=== PATIENT | female | born 1935 | race African-American/Black ===

== ENCOUNTER → 2016-12-02 | Outpatient (CLI) | payer MEDICARE, MEDICAID | LOC: WI 08:51 | PROVIDERS: ATTEND Family Medicine | DX: Z12.31 Encounter for screening mammogram for malignant neoplasm of breast (principal) | CPT/HCPCS: 77063; G0202; 77067 ==

== ENCOUNTER → 2017-04-23 | Outpatient (CLI) | payer MEDICARE ==
--- NOTE | 2017-04-23 10:34 | WOMENS IMAGING REPORT ---
EXAM DESCRIPTION: BONE DENSITY HIP/SPINE COMPLETED DATE/TIME: 04/23/2017 10:14 am REASON FOR STUDY: AGE-RELATED OSTEOPROSIS; M81.0 M81.0 AGE-RELATED OSTEOPOROSIS W/O CURRENT PATHOLO GICAL FRAC COMPARISON: None. TECHNIQUE: Dual-Energy X-ray Absorptiometry (DEXA) of the AP Spine and Hip. LIMITATIONS: None. FINDINGS: LUMBAR SPINE: The bone mineral density (BMD) measured from L1-L4 in the AP projection correlates with a T-score of -1.2, which is osteopenia as defined by the World Health Organization. HIP: The bone mineral density (BMD) measured in the left hip correlates with a T-score of -1.6 in the femo ral neck, which is osteopenia as defined by the World Health Organization. IMPRESSION: 1. LUMBAR SPINE: Osteopenia 2. HIP: Osteopenia COMMENT: The World Health Organization defines low BMD as follows: T-score: Normal: Greater than -1.0 Osteopenia: Between -1.0 and -2.5 Osteoporosis: Less than -2.5 without fractures Established osteoporosis: Less than -2.5 with fractures In general, you may wish to consider: Diagnosis Treatment Follow-up DEXA Normal BMD Prevention 2-3 years Osteopenia Prevention/Therapy 1-2 years Osteoporosis Therapy Yearly TECHNICAL DOCUMENTATION: JOB ID: [id number]- All Rights Reserved
--- NOTE | 2017-04-23 16:13 | WOMENS IMAGING REPORT ---
EXAM DESCRIPTION: 3D SCREENING MAMMO BILAT COMPLETED DATE/TIME: 04/23/2017 10:13 am REASON FOR STUDY: ROUTINE SCREENING; Z12.31 M81.0 AGE-RELATED OSTEOPOROSIS W/O CURRENT PATHOLOGICAL FRAC COMPARISON: Multiple since 2012 TECHNIQUE: Standard craniocaudal and mediolateral oblique views of each breast recorded using digita l acquisition and breast tomosynthesis. LIMITATIONS: None. FINDINGS: Findings present which are benign by mammographic criteria. No suspicious masses, calcifi cations or architectural distortion. Pertinent benign findings: Benign skin calcifications bilaterally Read with the assistance of CAD. .[facility] - R2 Cenova Version 1.3 .[facility] - R2 Cenova Version 1.3 .[facility] Imaging - R2 Cenova Version 2.4 .[facility] - R2 Cenova Version 2.4 .[facility] - R2 Electric [employer] Version 9.2 Benign mammographic findings may include one or more of the following: Smooth masses, popcorn/rim/co arse calcifications, asymmetries, post-procedure changes, and lesions with long-standing stability. IMPRESSION: BENIGN MAMMOGRAPHIC FINDINGS. BIRADS 2 BREAST DENSITY: a. The breasts are almost entirely fatty. BIRAD: 2 BENIGN FINDING(S) RECOMMENDATION: RECOMMENDATION: ROUTINE SCREENING Please continue yearly bilateral screening tomosynthesis in March 2018 COMMENT: The patient has been notified of the results by letter per SA requirements. Additional no tification policies are in place for contacting patient with suspicious or incomplete findings. Quality ID #[id number]: The [employer] recommends an annual screening mammogram for women aged 40 years or over. This facility utilizes a reminder system to ensure that all patients receive reminder letters, and/or direct phone calls for appointments. This includes reminders for routine scr eening mammograms, diagnostic mammograms, or other Breast Imaging Interventions when appropriate. Th is patient will be placed in the appropriate reminder system. The [employer] (ACR) has developed recommendations for screening MRI of the breast s in certain patient populations, to be used in conjunction with mammography. Breast MRI surveillanc e may be appropriate for women with more than 20% lifetime risk of developing breast cancer as deter mined by genetic testing, significant family history of the disease, or history of mantle radiation f or Hodgkins Disease. ACR Practice Guidelines 2008. DBT Technology DBT is a type of tomographic mammography. With conventional mammography, overlapping breast tissue ma y make lesions difficult to detect, even with good compression. DBT uses an x-ray tube that rotates a round the breast, taking images at different angles. These images are then combined to create thin sl ices of the breast that the radiologist can view as a 3D reconstruction. The [employer] unit can perform full-field digital mammograms (2D imaging); or DBT (3D imaging); or both, in a combination mode that quickly performs both the mammogram and the tomosynthesis scan while the breast is still compressed. PQRS 6045F: Fluoroscopic imaging is not utilized for breast tomosynthesis. TECHNICAL DOCUMENTATION: FINDING NUMBER: (1) ASSESSMENT: (1) JOB ID: [id number] [employer]- All Rights Reserved
== END ==
LOC: WI 09:12
PROVIDERS: ATTEND Family Medicine
DX: Z12.31 Encounter for screening mammogram for malignant neoplasm of breast (principal); M81.0 Age-related osteoporosis without current pathological fracture
CPT/HCPCS: 77063; 77080; G0202; 77067

== ENCOUNTER → 2017-12-08 | Outpatient (CLI) | payer MEDICARE, MEDICAID ==
[2017-12-08 10:05] LABS: ABSOLUTE EOSINOPHILS # (AUTO) 0.1 10^3/uL (0.0-0.6); ABSOLUTE LYMPHOCYTES (AUTO) 1.6 10^3/uL (0.5-4.7); ABSOLUTE MONOCYTES (AUTO) 0.7 10^3/uL (0.1-1.4); ABSOLUTE NEUT (AUTO) 2.6 10^3/uL (1.7-8.2); BASOPHILS % (AUTO) 0.6 % (0-2); EOSINOPHILS % (AUTO) 2.5 % (0-6); HEMATOCRIT 38.4 % (36.0-47.0); LYMPHOCYTES % (AUTO) 31.1 % (13-45); MEAN CORPUSCULAR HGB CONC 33.9 g/dL (32.0-36.0); MEAN CORPUSCULAR VOLUME 95 fl (80-97); MONOCYTES % (AUTO) 13.9 % (3-13); PLATELET COUNT 212 10^3/uL (150-450); RED BLOOD COUNT 4.06 10^6/uL (3.72-5.28); RED CELL DISTRIBUTION WIDTH 13.5 % (11.5-14.0); SEGMENTED NEUTROPHILS % (AUTO) 51.9 % (42-78); TOTAL CELLS COUNTED % (AUTO) 100 %
[2017-12-08 10:32] LABS: ALANINE AMINOTRANSFERASE 27 U/L (9-52); ALBUMIN 4.1 g/dL (3.5-5.0); ALKALINE PHOSPHATASE 86 U/L (38-126); ANION GAP 9 (5-19); ASPARTATE AMINO TRANSFERASE 28 U/L (14-36); BILIRUBIN,DIRECT 0.4 mg/dL (0.0-0.4); BILIRUBIN,TOTAL 0.5 mg/dL (0.2-1.3); BLOOD UREA NITROGEN 14 mg/dL (7-20); CALCIUM 9.8 mg/dL (8.4-10.2); CARBON DIOXIDE 30 mmol/L (22-30); CHLORIDE 92 mmol/L (98-107); GLUCOSE 89 mg/dL (75-110); SODIUM 130.6 mmol/L (137-145); TOTAL PROTEIN 7.3 g/dL (6.3-8.2)
[2017-12-08 10:44] LABS: ERYTHROCYTE SEDIMENTATION RATE 34 mm/hr (0-30)
== END ==
LOC: LAB 09:43
PROVIDERS: ATTEND Orthopaedic Surgery
DX: M25.561 Pain in right knee (principal); M25.562 Pain in left knee
CPT/HCPCS: 36415; 80053; 85025; 85652; 86140

== ENCOUNTER → 2017-12-09 | Outpatient (CLI) | payer MEDICARE, MEDICAID ==
--- NOTE | 2017-12-09 15:30 | RADIOLOGY REPORT (SQ) ---
EXAM DESCRIPTION: NM 3 PHASE BONE SCAN COMPLETED DATE/TIME: 12/09/2017 2:05 pm REASON FOR STUDY: PAIN IN L/R KNEE M25.561 PAIN IN RIGHT KNEE M25.562 PAIN IN LEFT KNEE COMPARISON: Plain films from Dr. Palacios, 12/03/2017 RADIONUCLIDE AND DOSE: 22 millicuries Tc99m MDP. The route of agent administration: Intravenous. ADDITIONAL DRUGS AND DOSES: None. TECHNIQUE: Following injection of the radiopharmaceutical, serial blood flow images acquired. Equil ibrium blood pool images then acquired. Routine delayed images at 3 hour acquired of the areas of cl inical concern with additional focused images as needed. AREA OF INTEREST: Bilateral knees, bilateral hips LIMITATIONS: None. FINDINGS: Blood flow images show symmetric flow to the bilateral knees. Blood pool imaging demonstrates all no definite increased uptake on the right side with the knee repl acement. Delayed images demonstrate a bare area over the proximal tibial metaphysis from hardware. There is i ncreased uptake along the medial edge of the tibia adjacent to the hardware. This might indicate loo sening or microfracture. There is increased uptake along the left knee patella and medial compartment related to osteoarthriti s Delayed images of the lower lumbar spine and pelvis demonstrate increased uptake right L5-S1 facet. Mild increased uptake at the right hip joint likely related to osteoarthritis IMPRESSION: Right total knee replacement. Increased uptake on delayed images only, medial tibial pl ateau adjacent to the prosthesis. 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 TECHNICAL DOCUMENTATION: JOB ID: [id number] [employer]- All Rights Reserved Reading location - IP/workstation name: [facility]
== END ==
LOC: RAD 08:06
PROVIDERS: ATTEND Orthopaedic Surgery
DX: M25.561 Pain in right knee (principal); M25.562 Pain in left knee
CPT/HCPCS: 78315; A9561; Q9969

== ENCOUNTER → 2018-02-11 | Outpatient (CLI) | payer MEDICARE, MEDICAID ==
[2018-02-11 13:38] LABS: ABSOLUTE EOSINOPHILS # (AUTO) 0.1 10^3/uL (0.0-0.6); ABSOLUTE LYMPHOCYTES (AUTO) 1.1 10^3/uL (0.5-4.7); ABSOLUTE MONOCYTES (AUTO) 0.3 10^3/uL (0.1-1.4); ABSOLUTE NEUT (AUTO) 3.8 10^3/uL (1.7-8.2); BASOPHILS % (AUTO) 0.6 % (0-2); EOSINOPHILS % (AUTO) 1.1 % (0-6); HEMATOCRIT 38.2 % (36.0-47.0); LYMPHOCYTES % (AUTO) 20.2 % (13-45); MEAN CORPUSCULAR HEMOGLOBIN 32.4 pg (27.0-33.4); MEAN CORPUSCULAR VOLUME 95 fl (80-97); MONOCYTES % (AUTO) 5.9 % (3-13); PLATELET COUNT 205 10^3/uL (150-450); RED CELL DISTRIBUTION WIDTH 14.1 % (11.5-14.0); SEGMENTED NEUTROPHILS % (AUTO) 72.2 % (42-78); TOTAL CELLS COUNTED % (AUTO) 100 %; WHITE BLOOD COUNT 5.3 10^3/uL (4.0-10.5)
[2018-02-11 13:43] LABS: APPEARANCE,URINE CLEAR; BILIRUBIN,URINE NEGATIVE (NEGATIVE); COLOR,URINE YELLOW; GLUCOSE, URINE NEGATIVE (NEGATIVE); KETONES,URINE NEGATIVE (NEGATIVE); LEUKOCYTE ESTERASE,URINE TRACE (NEGATIVE); NITRITE,URINE NEGATIVE (NEGATIVE); PROTEIN,URINE NEGATIVE (NEGATIVE); URINE SPECIFIC GRAVITY 1.008; UROBILINOGEN,URINE NEGATIVE mg/dL (<2.0)
[2018-02-11 14:13] LABS: ANION GAP 10 (5-19); BLOOD UREA NITROGEN 16 mg/dL (7-20); C-REACTIVE PROTEIN 10.5 mg/L (<10.0); CALCIUM 9.8 mg/dL (8.4-10.2); CARBON DIOXIDE 28 mmol/L (22-30); CHLORIDE 97 mmol/L (98-107); GLUCOSE 93 mg/dL (75-110); POTASSIUM 4.3 mmol/L (3.6-5.0); SODIUM 134.6 mmol/L (137-145)
[2018-02-11 14:36] LABS: ERYTHROCYTE SEDIMENTATION RATE 36 mm/hr (0-30)
--- NOTE | 2018-02-11 14:59 | RADIOLOGY REPORT (SQ) ---
EXAM DESCRIPTION: CHEST PA/LATERAL COMPLETED DATE/TIME: 02/11/2018 1:17 pm REASON FOR STUDY: PRE-OP COMPARISON: June 2007 EXAM PARAMETERS: NUMBER OF VIEWS: two views TECHNIQUE: Digital Frontal and Lateral radiographic views of the chest acquired. RADIATION DOSE: NA LIMITATIONS: none FINDINGS: LUNGS AND PLEURA: No opacities, masses or pneumothorax. No pleural effusion. MEDIASTINUM AND HILAR STRUCTURES: No masses or contour abnormalities. HEART AND VASCULAR STRUCTURES: Cardiac silhouette is at the upper limits of normal in size. Tortuous thoracic aorta is again identified. BONES: No acute findings. HARDWARE: None in the chest. OTHER: No other significant finding. IMPRESSION: NO SIGNIFICANT RADIOGRAPHIC FINDING IN THE CHEST. TECHNICAL DOCUMENTATION: JOB ID: [id number] [employer]- All Rights Reserved Reading location - IP/workstation name: [email or web address]
--- NOTE | 2018-02-11 22:54 | EKG REPORT ---
SEVERITY:- BORDERLINE ECG - SINUS RHYTHM VENTRICULAR PREMATURE COMPLEX BORDERLINE T ABNORMALITIES, INFERIOR LEADS : Confirmed by: Antonina Reed 11-Feb-2018 22:53:28
== END ==
LOC: OD 12:22
PROVIDERS: ATTEND Orthopaedic Surgery
DX: Z01.818 Encounter for other preprocedural examination (principal); I11.0 Hypertensive heart disease with heart failure
CPT/HCPCS: 36415; 71046; 80048; 81001; 85025; 85652; 86140; 93005; 93010

== ENCOUNTER 2018-02-16 23:23 | Emergency (ER) | payer MEDICARE, MEDICAID ==
[2018-02-17] MEDS ORDERED: DIPH/PERTUSS(ACELL)/TETANUS VAC/PF 0.5 ML SYR (>=10YO) IM ONE (01:49)
[2018-02-17] MEDS ORDERED: LIDOCAINE 1% INJ-PF (10 MG/ML) 30 ML SDV INJ ONE (01:54)
--- NOTE | 2018-02-17 02:19 | RADIOLOGY REPORT (SQ) ---
EXAM DESCRIPTION: XR SHOULDER 2 OR MORE VIEWS COMPLETED DATE/TME: 02/16/2018 00:00 CLINICAL HISTORY: 82 years, Female, injury COMPARISON: None. FINDINGS: 2 views of the right shoulder. No acute fracture or dislocation. Osteopenia. Degenerative change. Right acromioclavicular joint. No acute abnormalities of the right hemithorax. IMPRESSION: No acute fracture or dislocation. 2010 [email or web address]- All Rights Reserved
--- NOTE | 2018-02-17 02:41 | RADIOLOGY REPORT (SQ) ---
EXAM DESCRIPTION: XR KNEE 1-2 VIEWS BILATERAL COMPLETED DATE/TME: 02/17/2018 01:54 CLINICAL HISTORY: 82 years, Female, trauma COMPARISON: None. FINDINGS: 2 views of the bilateral knees. Right total knee arthroplasty. Osteopenia. 3 compartment joint space narrowing and marginal osteophytosis of the left knee. No acute fracture or dislocation. No radiopaque foreign bodies. Possible small left joint effusion. IMPRESSION: 1. No acute fracture or dislocation. 2. Right total knee arthroplasty. 3. 3 compartment osteoarthritic change of the left knee. 2011 [email or web address]- All Rights Reserved
[2018-02-17] MEDS ORDERED: ACETAMINOPHEN 325 MG TABLET PO ONE (03:29)
--- NOTE | 2018-02-17 03:29 | ER Document Report ---
ED General - General Chief Complaint: Laceration Stated Complaint: FALL,KNEE LACERATION Time Seen by Provider: 02/17/18 01:45 Notes: Patient is an 82-year-old female who is trying to squeeze between her dresser in her bed. She said doing so she cut her left knee on the dresser drawer knob and then fell onto her right side. She complains of some pain in her right knee and her right shoulder as well as over the laceration her left knee. She denies hitting her head. No loss of consciousness. No other complaints at this time. No pain in her hips. No pain in her abdomen or pelvis. TRAVEL OUTSIDE OF THE [place] IN LAST 30 DAYS: No - Related Data Allergies/Adverse Reactions: aspirin [From Uzair Aspirin] Allergy (Verified 02/15/18 12:43) Nausea clarithromycin [From Biaxin] Allergy (Verified 02/15/18 12:43) Hives Penicillins Allergy (Verified 02/15/18 12:43) Hives Past Medical History - Social History Smoking Status: Never Smoker Chew tobacco use (# tins/day): No Frequency of alcohol use: None Drug Abuse: None Family History: Reviewed & Not Pertinent Patient has suicidal ideation: No Patient has homicidal ideation: No Renal/ Medical History: Denies: Hx Peritoneal Dialysis Review of Systems - Review of Systems Notes: My Normal Review Basic REVIEW OF SYSTEMS: CONSTITUTIONAL : Denies fever, chills, or sweats. Denies recent illness. CARDIOVASCULAR: Denies chest pain. RESPIRATORY: Denies cough, cold, or chest congestion. Denies shortness of breath, difficulty breathing, or wheezing. GASTROINTESTINAL: Denies abdominal pain. Denies nausea, vomiting, or diarrhea. Denies constipation. Last BM: GENITOURINARY: Denies difficulty urinating, painful urination, burning, frequency, or blood in urine. MUSCULOSKELETAL: Laceration over left patella. Some pain over right knee and right shoulder. SKIN: Denies rash or skin lesions. NEUROLOGICAL: Denies altered mental status or loss of consciousness. Denies headache. Denies weakness or paralysis or loss of use of either side. Denies problems with gait or speech. Denies sensory or motor loss. ALL OTHER SYSTEMS REVIEWED AND NEGATIVE. Physical Exam - Vital signs Vitals: Temp Pulse Resp BP Pulse Ox 97.9 F 68 18 142/71 H 97 02/16/18 23:49 02/16/18 23:49 02/16/18 23:49 02/16/18 23:49 02/16/18 23:49 - Notes Notes: General Appearance: Well nourished, alert, cooperative, no acute distress, mild obvious discomfort. Vitals: reviewed, See vital signs table. Head: no swelling or tenderness to the head Eyes: PERRL, EOMI, Conjuctiva clear Mouth: No decreasd moisture Neck: Supple, no neck tenderness Lungs: No wheezing, No rales, No rhonci, No accessory muscle use, good air exchange bilaterally. Heart: Normal rate, Regular rythm, No murmur, no rub Abdomen: Normal BS, soft, No rigidity, No abdominal tenderness, No guarding, no rebound, no abdominal masses, no organomegaly Extremities: strength 5/5 in all extremities, good pulses in all extremities, 3 cm laceration over left knee. Only pain to palpation of left knee is over the laceration itself. Remainder of the knee is nontender. Right knee has some tenderness with flexion of the knee. Mild tenderness to palpation over the patella itself. Right shoulder has good range of motion but has some pain medially over the superior aspect of the shoulder and of the right trapezius muscle. No midline neck pain. Skin: warm, dry, appropriate color, no rash Neuro: speech clear, oriented x 3, normal affect, responds appropriately to questions. Course - Re-evaluation Re-evalutation: 02/17/18 04:08 X-rays are negative for fracture. Laceration was closed with sutures. Patient looks and feels improved. Patient given tetanus shot because is not up-to-date on tetanus. Informed patient and her daughter to return to ER or her doctor's office in 1 week to have sutures removed. Encouraged her return to ER immediately if she has worsening pain or is not acting appropriately. Patient daughter agree with plan and she will be discharged home. Dictation of this chart was performed using voice recognition software; therefore, there may be some unintended grammatical errors. - Vital Signs Vital signs: Temp Pulse Resp BP Pulse Ox 97.9 F 68 18 142/71 H 97 02/16/18 23:49 02/16/18 23:49 02/16/18 23:49 02/16/18 23:49 06/26/18 23:49 Procedures - Laceration/Wound Repair Left Knee Wound length (cm): 3 Wound's Depth, Shape: Linear Anesthetic type: 1% Lidocaine Volume Anesthetic (mLs): 2 Wound explored: Clean Irrigated w/ Saline (mLs): 30 Wound Repaired With: Sutures Suture Size/Type: 4:0, Ethilon Number of Sutures: 5 Post-procedure NV exam normal: Yes Complications: No Discharge - Discharge Clinical Impression: Knee laceration Qualifiers: Encounter type: initial encounter Laterality: left Qualified Code(s): S81.012A - Laceration without foreign body, left knee, initial encounter Shoulder contusion Qualifiers: Encounter type: initial encounter Laterality: right Qualified Code(s): S40.011A - Contusion of right shoulder, initial encounter Condition: Good Disposition: HOME, SELF-CARE Additional Instructions: LACERATION CARE: Your laceration has been sutured to keep the skin edges aligned during healing. The time of suture removal depends on the nature and location of your cut. Please follow the care instructions the doctor has outlined for you and return for further care, according to the schedule you've been given. Keep the wound and dressing clean. Unless you were told otherwise, you may shower daily, blotting the wound dry with a clean, unused towel. At other times, If the dressing gets wet or blood soaked, remove it and blot the wound dry, then reapply a new dressing. Unless you were instructed otherwise, dressings should be changed at least daily. If any signs of infection occur (swelling, redness, drainage, increasing tenderness, red streaks, tender lumps in the armpit or groin above the laceration, or fever), see the doctor immediately. SOAP CLEANSING: Gently wash the wound daily using a mild soap (like Ivory, Phisoderm, Neutrogena). Use warm water, rubbing gently until all debris, ooze, and crusting have been washed from the wound. Allow to dry briefly (about 10 minutes) after cleaning. Repeat this cleansing at least three times a day for the first two days and then once or twice a day. TETANUS IMMUNIZATION GIVEN: You have been given an immunization against tetanus. Please record this in your records. In general, a booster is needed only once every 10 years. The tetanus shot protects against tetanus or "lockjaw," which is a complication of certain wound infections (the tetanus shot cannot protect against the actual infection). The immunization site may become warm and red due to local reaction. If this occurs, apply warm compresses and take aspirin or ibuprofen to reduce inflammation and discomfort. Return for evaluation if the reaction becomes severe. FOLLOW-UP CARE: Your sutures should be removed in ___7__ days. To facilitate a timely removal of your sutures, you may return to the Emergency Department at [facility]. You do not need to call for an appointment, but the best time to come in for suture removal is early in the morning. If you have been referred to another physician for follow-up care, call that physicians office for an appointment as you were instructed. If you experience a significant change in your laceration, or if you are concerned there may be an infection (swelling, redness, drainage, increasing tenderness, red streaks, tender lumps in the armpit or groin above the laceration, or fever) , return to the Emergency Department immediately re-evaluation. Referrals: RAFAEL BOOKER MD [Primary Care Provider] - Follow up in 1 week
[2018-02-17 04:05] VITALS: BP 140/64
== END 2018-02-17 04:04 | disposition home or self-care (01) ==
LOC: ER 23:23
PROC: 0HQLXZZ Repair Left Lower Leg Skin, External Approach (ICD-10-PCS; principal; 2018-02-16)
DX: S81.012A Laceration without foreign body, left knee, initial encounter (principal); S40.011A Contusion of right shoulder, initial encounter; W22.09XA Striking against other stationary object, initial encounter; Z23 Encounter for immunization; Z88.6 Allergy status to analgesic agent; Z88.0 Allergy status to penicillin
CPT/HCPCS: 99283; 90471; 73030; 73560; 90715; 12002; A9270; J3490

== ENCOUNTER 2018-02-24 06:04 | Emergency (ER) | payer MEDICARE, MEDICAID ==
[2018-02-24 06:14] VITALS: BP 134/61
--- NOTE | 2018-02-24 08:01 | ER Document Report ---
ED Suture/Wound Recheck - General Chief Complaint: Suture Removal Stated Complaint: REMOVE STITCHES Time Seen by Provider: 02/24/18 07:49 Mode of Arrival: Ambulatory Information source: Patient TRAVEL OUTSIDE OF THE [place] IN LAST 30 DAYS: No - HPI Notes: She presents for suture removal after sustaining a laceration to her knee after falling on February 17, 2017, had 5 stitches placed. Tetanus is up-to-date. Eating and drinking without issues. Denies any signs and symptoms of infection chest such as redness, swelling, drainage. Denies any pain to the affected knee. Has taken [id number]-[id number] Tylenol and ibuprofen for pain control. Is not experiencing any pain at this time. - Related Data Allergies/Adverse Reactions: aspirin [From Uzair Aspirin] Allergy (Verified 02/15/18 12:43) Nausea clarithromycin [From Biaxin] Allergy (Verified 02/15/18 12:43) Hives Penicillins Allergy (Verified 02/15/18 12:43) Hives Past Medical History - General Information source: Patient - Social History Smoking Status: Never Smoker Family History: Reviewed & Not Pertinent Renal/ Medical History: Denies: Hx Peritoneal Dialysis Review of Systems - Review of Systems Constitutional: No symptoms reported Cardiovascular: No symptoms reported Respiratory: No symptoms reported Gastrointestinal: No symptoms reported Musculoskeletal: No symptoms reported Skin: See HPI Hematologic/Lymphatic: No symptoms reported Neurological/Psychological: No symptoms reported Physical Exam - Vital signs Vitals: Temp Pulse Resp BP Pulse Ox 97.6 F 72 18 134/61 H 100 02/24/18 06:04 02/24/18 06:04 02/24/18 06:04 02/24/18 06:04 02/24/18 06:04 - Respiratory Respiratory status: No respiratory distress Chest status: Nontender Breath sounds: Normal Chest palpation: Normal - Cardiovascular Rhythm: Regular Heart sounds: Normal auscultation Murmur: No Normal capillary refill: Yes - Extremities Knee: Normal, Nontender - Sutures intact, no surrounding erythema, induration or swelling. no Pain with movement Calf: Normal - Neurological Motor strength normal: LUE, RUE, LLE, RLE Additional motor exam normals: Equal rope walker, Dorsiflexion Knee - Reflex grade: 2 = Normal Ankle - Reflex grade: 2 = Normal - distal pulses +2 to BLE equally, full motor and sensory function to BLE equally. Course - Re-evaluation Re-evalutation: 02/24/18 08:03 Consent given for suture removal. #5 sutures removed without incident. No surrounding erythema, induration or swelling around incision site. Patient tolerated procedure without incident. 3 Steri-Strips applied, wound well approximated. - Vital Signs Vital signs: Temp Pulse Resp BP Pulse Ox 97.6 F 72 18 134/61 H 100 02/24/18 06:04 02/24/18 06:04 02/24/18 06:04 02/24/18 06:04 02/24/18 06:04 Discharge - Discharge Clinical Impression: Encounter for removal of sutures Condition: Stable Disposition: HOME, SELF-CARE Instructions: Suture Removal Additional Instructions: Monitor for any signs and symptoms of infection such as redness, drainage, swelling. Steri-Strips will naturally fall off. Follow-up with primary care provider within 3 days as needed. Return immediately for any new or worsening symptoms. Follow up with primary care provider, call tomorrow to make followup appointment. Referrals: RAFAEL BOOKER MD [Primary Care Provider] - Follow up in 1 week (prn)
== END 2018-02-24 08:10 | disposition home or self-care (01) ==
LOC: ER 06:04
DX: S81.012D Laceration without foreign body, left knee, subsequent encounter (principal); W19.XXXD Unspecified fall, subsequent encounter; Z88.6 Allergy status to analgesic agent; Z88.1 Allergy status to other antibiotic agents; Z88.0 Allergy status to penicillin
CPT/HCPCS: 99281

== ENCOUNTER 2018-03-01 10:31 | Inpatient (IN) | payer MEDICARE, MEDICAID ==
[~2018-03-01 10:31] MED LIST: BUPIVACAINE INJ/PF LIPOSOME/PF 266 MG/20 ML SDV INJ PRN; BUPIVACAINE INJ/PF LIPOSOME/PF 266 MG/20 ML SDV ONE; CEFAZOLIN INJ 1 GM VIAL IV PRN; IBUPROFEN 800 MG in NORMAL SALINE 250 ML IV PRN; LACTATED RINGERS 1000 ML IV PRN; LANSOPRAZOLE 15 MG TAB.RAP.DR PO PRN; LIDOCAINE 0.5% INJ-PF (5 MG/ML) 50 ML SDV SUBCUT PRN; OXYCODONE HCL SR 10 MG TABLET PO PRN; THROMBIN (BOVINE) 5000 UNIT EPITAXIS KIT ONE; THROMBIN (BOVINE) TOPICAL 20000 UNIT VIAL ONE; VANCOMYCIN HCL 1,000 MG in DEXTROSE 5%-WATER 250 ML IV PRN
[2018-03-01] MEDS ORDERED: CLINDAMYCIN 600 MG/D5W RTU 600 MG/50 ML RTUPB IV ONE (11:02)
[2018-03-01] MEDS ORDERED: LIDOCAINE 2% INJ-PF (20 MG/ML) 10 ML AMPUL ONE (12:29)
[2018-03-01] MEDS ORDERED: FENTANYL CITRATE INJ/PF 100 MCG/2 ML AMPUL ONE ×2 (12:29)
[2018-03-01] MEDS ORDERED: DEXAMETHASONE SOD PHOSPHATE INJ 4 MG/1 ML VIAL ONE (12:30)
[2018-03-01] MEDS ORDERED: PROPOFOL INJ 200 MG/20 ML VIAL IV ONE (12:30)
[2018-03-01] MEDS ORDERED: ACETAMINOPHEN 1,000 MG/100 ML RTUPB IV ONE ×2 (12:30→20:38)
[2018-03-01] MEDS ORDERED: MIDAZOLAM 2 MG/2 ML INJ ONE (12:30)
[2018-03-01] MEDS ORDERED: ONDANSETRON HCL INJ/PF 4 MG/2 ML SDV ONE (12:30)
[2018-03-01] MEDS ORDERED: BUPIVACAINE HCL/DEX-WATER/PF 15 MG/2 ML AMPULE ONE (12:31)
[2018-03-01] MEDS ORDERED: ONDANSETRON HCL INJ/PF 4 MG/2 ML SDV IV PRN ×2 (14:07→14:38)
[2018-03-01] MEDS ORDERED: MORPHINE SULFATE 10 MG/ML INJ IV PRN ×4 (14:07→14:38)
[2018-03-01] MEDS ORDERED: MEPERIDINE HCL/PF INJ 25 MG/1 ML DISP.SYRIN IV PRN (14:07)
[2018-03-01] MEDS ORDERED: DIPHENHYDRAMINE HCL 50 MG/ML VIAL IV PRN ×2 (14:07→14:38)
[2018-03-01] MEDS ORDERED: FENTANYL CITRATE INJ/PF 100 MCG/2 ML AMPUL IV PRN ×2 (14:07)
[2018-03-01] MEDS ORDERED: PROMETHAZINE HCL INJ 25 MG/1 ML VIAL IV PRN ×2 (14:07)
--- NOTE | 2018-03-01 14:35 | Operative Report ---
Operative Report DATE OF SURGERY: 03/01/18 PREOPERATIVE DIAGNOSIS: Painful right knee arthroplasty OPERATION: Revision right knee arthroplasty SURGEON: RADHIKA PHILLIPS ANESTHESIA: GA TISSUE REMOVED OR ALTERED: Cultures 2 to microbiology. Implant to CSS. Soft tissue to pathology ESTIMATED BLOOD LOSS: 50 PROCEDURE: With the patient supine operating room table the right lower extreme was prepped and draped in sterile fashion. Limb was elevated for exsanguination tourniquet inflated 280 torr. Before the incision the patella is inspected. There is little translation either medially or laterally with the intact patella. Next patellofemoral tracking is observed and seems to be central with further flexion up to approximately 135. A standard midline medial parapatellar parapatellar approach to the knee joint is performed. Cultures are sent to microbiology. The existing patella is everted. There is clear burnishing on what would be the lateral margin with flattening and wear. A significant significant debridement of scar tissue infrapatellar as well as laterally is performed. A lateral retinacular release is performed. Patella height is measured to be 23 mm. The existing patella is removed using a TPS saw with essentially no bone loss. [place]ing sizing implants for an asymmetric patella are examined in a 38 mm oval patella completely covers existing bone. Guide holes are drilled. Polymethylmethacrylate was mixed. The 38 mm asymmetric patella is cemented in place. Final patella height is 22 mm. The tourniquet is deflated. The wound is irrigated with pulse lavage. Hemostasis obtained with electrocautery. The wound is closed in layers with interrupted Vicryl followed by john
[2018-03-01] MEDS ORDERED: ONDANSETRON 4 MG TAB.RAPDIS PO PRN (14:38)
[2018-03-01] MEDS ORDERED: ZOLPIDEM TARTRATE 5 MG TABLET PO PRN (14:38)
[2018-03-01] MEDS ORDERED: OXYCODONE HCL IR 5 MG TABLET PO PRN (14:38)
[2018-03-01] MEDS ORDERED: MORPHINE SULFATE 10 MG/ML INJ IM PRN (14:38)
[2018-03-01] MEDS ORDERED: MAG HYDROX/AL HYDROX/SIMETH SUSP 30 ML UDCUP PO PRN (14:38)
[2018-03-01] MEDS ORDERED: ACETAMINOPHEN 325 MG TABLET PO PRN (14:38)
[2018-03-01] MEDS ORDERED: TRANEXAMIC ACID INJ/PF 1,000 MG/10 ML SDV IV ONE (15:44)
[2018-03-01] MEDS ORDERED: SUCCINYLCHOLINE CHLORIDE INJ 200 MG/10 ML VIAL ONE (16:23)
[2018-03-01] MEDS: SENNOSIDES/DOCUSATE 8.6-50 MG 1 EACH TABLET PO SCH (18:28)
[2018-03-01] MEDS: OXYCODONE HCL SR 10 MG TABLET PO SCH (22:25)
[2018-03-02 05:20] VITALS: BP 129/81
--- NOTE | 2018-03-02 06:42 | PDOC DISCHARGE SUMMARY ---
General - Admit/Disc Date/PCP Admission Date/Primary Care Provider: 03/01/18 10:31 RAFAEL BOOKER MD Discharge Date: 03/02/18 - Discharge Diagnosis (1) Mechanical complication of prosthetic knee implant Is this a current diagnosis for this admission?: Yes - Additional Information Resuscitation Status: Full Code Discharge Diet: As Tolerated, Regular Discharge Activity: Balance Activity w/Rest, No Driving, No tub bath Home Medications: Alendronate Sodium [Fosamax 70 mg Tablet] 70 mg PO Q7D 03/01/18 Atorvastatin Calcium [Lipitor 20 mg Tablet] 20 mg PO QHS 03/01/18 Calcium Citrate/Vitamin D3 [Calcium Citrate - Vit D Caplet] 1 tab PO BIDPCBS 05/11 Hydroxyzine HCl [Atarax 25 mg Tablet] 25 mg PO Q6HP PRN 03/01/18 Loratadine [Claritin 10 mg Tablet] 10 mg PO DAILY 03/01/18 Losartan/Hydrochlorothiazide [Losartan-Hctz 100-25 mg Tab] 1 tab PO QAM Omeprazole 40 mg PO DAILY 03/01/18 Oxycodone HCl [Oxy-Ir 5 mg Tablet] 5 mg PO Q6HP PRN tablet 03/02/18 History of Present Illness History of Present Illness: THIEN PRESTON is a 82 year old female with persistent/progressive right knee pain status post right knee arthroplasty. 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 Patient is now admitted for revision arthroplasty. Hospital Course Hospital Course: Patient is admitted through the operating where she undergoes uncomplicated revision. She is returned to floor in satisfactory condition. She makes limited progress with physical therapy on the day of surgery. Compressive dressing is removed on postop day 1. The underlying op site has a modest amount of drainage and this is changed. Physical Exam Vital Signs: Temp Pulse Resp BP Pulse Ox 36.6 C 88 26 H 129/81 H 91 L 03/02/18 05:18 03/02/18 05:18 03/02/18 05:18 03/02/18 05:18 03/02/18 05:18 Intake & Output 02/28/18 03/01/18 03/02/18 06:59 06:59 06:59 Intake Total 3800 Output Total 2400 Balance 1400 General appearance: PRESENT: no acute distress, mild distress Head exam: PRESENT: normocephalic Respiratory exam: PRESENT: unlabored Cardiovascular exam: PRESENT: RRR Pulses: PRESENT: +1 pedal pulses bilateral GI/Abdominal exam: PRESENT: soft Rectal exam: PRESENT: deferred Extremities exam: PRESENT: other - Right knee dressing changed on postop day 1. The underlying incision is well approximated john without any erythema or induration. There is minimal pedal edema. Distal neurovascular examination is intact. Neurological exam: PRESENT: alert, awake, oriented to person, oriented to place , oriented to time, oriented to situation. ABSENT: motor sensory deficit Psychiatric exam: PRESENT: appropriate affect, normal mood. ABSENT: homicidal ideation, suicidal ideation Skin exam: PRESENT: dry, intact, warm. ABSENT: cyanosis, rash Results Status: Imported from [facility] Qual[facility] - * PATIENT BEING DISCHARGED WITH ANY OF THE FOLLOWING DIAGNOSIS: No VTE patient discharged on overlapping Therapy?: Yes Plan Discharge Plan: Patient to be discharged home with home health physical therapy, senior care , wheeled walker, bedside commode. Follow-up with Dr. Palacios [facility] for surgery in 2 weeks for staple removal. Time Spent: Less than 30 Minutes
[2018-03-02 06:51] LABS: HEMATOCRIT 34.1 % (36.0-47.0); HEMOGLOBIN 11.8 g/dL (12.0-15.5); MEAN CORPUSCULAR HEMOGLOBIN 32.9 pg (27.0-33.4); MEAN CORPUSCULAR HGB CONC 34.5 g/dL (32.0-36.0); MEAN CORPUSCULAR VOLUME 96 fl (80-97); PLATELET COUNT 171 10^3/uL (150-450); RED BLOOD COUNT 3.58 10^6/uL (3.72-5.28)
[2018-03-02 07:26] LABS: ANION GAP 8 (5-19); BLOOD UREA NITROGEN 15 mg/dL (7-20); CARBON DIOXIDE 26 mmol/L (22-30); CHLORIDE 99 mmol/L (98-107); GLUCOSE 109 mg/dL (75-110); POTASSIUM 4.4 mmol/L (3.6-5.0); SODIUM 133.1 mmol/L (137-145)
[2018-03-02] MEDS ORDERED: VITAMIN D2 PO SCH (10:00)
[2018-03-02] MEDS ORDERED: LORATADINE 10 MG TABLET PO SCH (10:00)
[2018-03-02] MEDS ORDERED: CALCIUM CITRATE PO SCH (10:00)
[2018-03-02] MEDS ORDERED: (PENDING PHARMACY ID) (Multivit-Min/Iron Fum/Folic Ac [Multi-Vitamin-Minerals Tablet] 1 TA PO SCH (10:00)
[2018-03-02] MEDS ORDERED: PRENATAL VITAMIN W DHA CAPSULE PO SCH (10:00)
[2018-03-02] MEDS ORDERED: [UNRECOGNIZED DRUG - OTHER] PO SCH (10:00)
[2018-03-02] MEDS ORDERED: OMEPRAZOLE MAGNESIUM 40 MG PO SCH (10:00)
[2018-03-02] MEDS ORDERED: LOSARTAN POTASSIUM 25 MG TABLET PO SCH (10:00)
[2018-03-02] MEDS: OXYCODONE HCL SR 10 MG TABLET PO SCH (10:30)
[2018-03-02] MEDS: SENNOSIDES/DOCUSATE 8.6-50 MG 1 EACH TABLET PO SCH (10:30)
[2018-03-02] MEDS ORDERED: ATORVASTATIN CALCIUM 10 MG TABLET PO SCH (22:00)
== END 2018-03-02 12:34 | disposition home health service (06) | DRG 468 ==
LOC: INOR 10:31 → 4S 16:20
PROVIDERS: ADMIT Orthopaedic Surgery; ATTEND Orthopaedic Surgery
PROC: 0SRC0J9 Replacement of Right Knee Joint with Synthetic Substitute, Cemented, Open Approach (ICD-10-PCS; 2018-03-01)
PROC: 0SPC0JZ Removal of Synthetic Substitute from Right Knee Joint, Open Approach (ICD-10-PCS; principal; 2018-03-01 12:30)
DX: T84.092A Other mechanical complication of internal right knee prosthesis, initial encounter (principal); Z79.899 Other long term (current) drug therapy; Z88.6 Allergy status to analgesic agent; Z88.0 Allergy status to penicillin
CPT/HCPCS: 01402; 36415; 80048; 85027; 87070; 87075; 87205; 88304; 94799; C9290; G8978-GP; G8979-GP; G8987-GO; G8988-GO; J0131; J0330; J1100; J1741; J2250; J2405; J2704; J3010; J3370; J3490; J7050; J7060; L1830

== ENCOUNTER 2019-06-30 07:12 | Day surgery (SDC) | payer MEDICARE, MEDICAID ==
[~2019-06-30 07:12] MED LIST changes: -BUPIVACAINE INJ/PF LIPOSOME/PF 266 MG/20 ML SDV INJ PRN; -BUPIVACAINE INJ/PF LIPOSOME/PF 266 MG/20 ML SDV ONE; -CEFAZOLIN INJ 1 GM VIAL IV PRN; -IBUPROFEN 800 MG in NORMAL SALINE 250 ML IV PRN; +KETOROLAC TROMETHAMINE 0.45% 4 DROP/0.4 ML DROPERETTE OD PRN; -LACTATED RINGERS 1000 ML IV PRN; -LANSOPRAZOLE 15 MG TAB.RAP.DR PO PRN; -LIDOCAINE 0.5% INJ-PF (5 MG/ML) 50 ML SDV SUBCUT PRN; -OXYCODONE HCL SR 10 MG TABLET PO PRN; -THROMBIN (BOVINE) 5000 UNIT EPITAXIS KIT ONE; -THROMBIN (BOVINE) TOPICAL 20000 UNIT VIAL ONE; -VANCOMYCIN HCL 1,000 MG in DEXTROSE 5%-WATER 250 ML IV PRN
[2019-06-30] MEDS ORDERED: LIDOCAINE 1%/PHENYLEPHRINE 1.5% 1 ML VIAL ONE (07:23)
[2019-06-30] MEDS ORDERED: CHONDR SU A NA/HYALUR INTRAOC KIT (SURGICARE) ONE (07:23)
[2019-06-30] MEDS ORDERED: EPINEPHRINE INJ/PF 1 MG/1 ML AMPULE ONE (07:23)
[2019-06-30] MEDS: TROPICAMIDE 1% OPH SOLN 15 ML OD PRN ×3 (08:10→08:30)
[2019-06-30] MEDS: BESIFLOXACIN HCL 0.6% OPH SUSP 5 ML BOTTLE OD PRN ×4 (08:10→08:57)
[2019-06-30] MEDS: CYCLOPENTOLATE 0.2%/PHENYLEPHRINE 1% OPH SOLN 2 ML OD PRN ×3 (08:10→08:30)
[2019-06-30] MEDS: TETRACAINE HCL 0.5% OPH SOLN 4 ML OD PRN ×3 (08:10→08:38)
[2019-06-30] MEDS ORDERED: MIDAZOLAM 2 MG/2 ML INJ ONE (08:28)
[2019-06-30] MEDS ORDERED: FENTANYL CITRATE INJ/PF 100 MCG/2 ML AMPUL ONE (08:29)
[2019-06-30] MEDS: DORZOLAMIDE HCL 2%/TIMOLOL MALEAT 0.5% OPH SOLN 10 ML OD PRN ×2 (08:57)
--- NOTE | 2019-07-01 07:18 | Operative Report ---
Operative Report-[facility] Operative Report: DATE OF SURGERY: 06/30/2019 PREOPERATIVE DIAGNOSIS: Cataract, right eye POSTOPERATIVE DIAGNOSIS: Cataract, right eye OPERATION: Cataract extraction with insertion of an IOL of the right eye. Intraocular Lens Model: [25.5 sn60wf] Reason for surgery was difficulty seeing strong the television and medicine bottles SURGEON: Karl Purcell MD ANESTHESIA: Topical PROCEDURE: After obtaining appropriate consent, the patient's right eye was prepped and draped in a sterile fashion as well as the surgeon in the sterile manner and cataract surgery was started. First a paracentesis blade was used to make a side-port incision. Viscoelastic was used to inflate the anterior chamber. Next a 2.4 mm incision was made with a 2.4 mm blade, clear corneal temporarily. A continuous capsulorrhexis was made using a cystotome and Utrata forceps. Following this hydrodissection was carried out to make the marcy fully loose and mobile and it was rotated. Following this, a divide and conquer technique was used to phacoemulsify the marcy. The remaining cortex was removed with an irrigation/aspiration. Provisc was instilled into the capsular bag to inflate the bag. The intraocular lens was placed. The remaining viscoelastic material was removed with irrigation/aspiration. Following this, the incision was found to be watertight. Besivance and Cosopt was instilled into the eye and a protective shield was placed over the eye. The patient was reurned to the postoperative recovery in a stable condition.
== END 2019-06-30 09:45 | disposition home or self-care (01) ==
LOC: SC 07:12
PROVIDERS: ATTEND Internal Medicine
DX: H25.813 Combined forms of age-related cataract, bilateral (principal); I10 Essential (primary) hypertension; E78.00 Pure hypercholesterolemia, unspecified; H57.03 Miosis
CPT/HCPCS: 66984; 00142; V2632; J2250; J3490 ×2; A9270; J0171; J3010; J2370; 142

== ENCOUNTER 2019-08-04 09:46 | Day surgery (SDC) | payer MEDICARE, MEDICAID ==
[~2019-08-04 09:46] MED LIST changes: +CHONDR SU A NA/HYALUR INTRAOC KIT (SURGICARE) ONE; +EPINEPHRINE INJ/PF 1 MG/1 ML AMPULE ONE; -KETOROLAC TROMETHAMINE 0.45% 4 DROP/0.4 ML DROPERETTE OD PRN; +KETOROLAC TROMETHAMINE 0.45% 4 DROP/0.4 ML DROPERETTE OS PRN; +LIDOCAINE 1%/PHENYLEPHRINE 1.5% 1 ML VIAL ONE
[2019-08-04] MEDS ORDERED: ONDANSETRON HCL INJ/PF 4 MG/2 ML SDV ONE (10:12)
[2019-08-04] MEDS ORDERED: FENTANYL CITRATE INJ/PF 100 MCG/2 ML AMPUL ONE (10:13)
[2019-08-04] MEDS ORDERED: MIDAZOLAM 2 MG/2 ML INJ ONE (10:13)
[2019-08-04] MEDS: CYCLOPENTOLATE 0.2%/PHENYLEPHRINE 1% OPH SOLN 2 ML OS PRN ×3 (10:42→11:02)
[2019-08-04] MEDS: BESIFLOXACIN HCL 0.6% OPH SUSP 5 ML BOTTLE OS PRN ×4 (10:42→11:40)
[2019-08-04] MEDS: TROPICAMIDE 1% OPH SOLN 15 ML OS PRN ×3 (10:42→11:02)
[2019-08-04] MEDS: TETRACAINE HCL 0.5% OPH SOLN 4 ML OS PRN ×3 (10:43→11:22)
[2019-08-04] MEDS: DORZOLAMIDE HCL 2%/TIMOLOL MALEAT 0.5% OPH SOLN 10 ML OS PRN ×2 (11:40)
--- NOTE | 2019-08-04 12:49 | Operative Report ---
Operative Report-[facility] Operative Report: DATE OF SURGERY: 08/04/2019 PREOPERATIVE DIAGNOSIS: Cataracts, left eye POSTOPERATIVE DIAGNOSIS: Cataract, left eye OPERATION: Cataract extraction with insertion of an IOL of the left eye. Intraocular Lens Model: [25.5 sn60wf] Reason for surgery was difficulty seeing words on the television SURGEON: Karl Purcell MD ANESTHESIA: Topical PROCEDURE: After obtaining appropriate consent, the patient's left eye was prepped and draped in a sterile fashion as well as the surgeon in the sterile manner and cataract surgery was started. First a paracentesis blade was used to make a side-port incision. Viscoelastic was used to inflate the anterior chamber. Next a 2.4 mm incision was made with a 2.4 mm blade, clear corneal temporarily. A continuous capsulorrhexis was made using a cystotome and Utrata forceps. Following this hydrodissection was carried out to make the lens fully loose and mobile and it was rotated 90 degrees. Following this, a divide and conquer technique was used to phacoemulsify the lens. The remaining cortex was removed with an irrigation/aspiration. Provisc was instilled into the capsular bag to inflate the bag.The intraocular lens was placed. The remaining viscoelastic material was removed with irrigation/aspiration. Following this, the incision was found to be watertight. Besivance and Cosopt was instilled into the eye and a protective shield was placed over the eye. The patient was returned to the postoperative recovery in a stable condition.
== END 2019-08-04 12:30 | disposition home or self-care (01) ==
LOC: SC 09:46
PROVIDERS: ATTEND Internal Medicine
DX: H25.812 Combined forms of age-related cataract, left eye (principal); H57.03 Miosis; Z96.1 Presence of intraocular lens; J45.909 Unspecified asthma, uncomplicated; K21.9 Gastro-esophageal reflux disease without esophagitis; I10 Essential (primary) hypertension; Z88.0 Allergy status to penicillin; Z88.6 Allergy status to analgesic agent
CPT/HCPCS: 66984; V2632; J2250; J3490 ×2; A9270; J0171; J2405; J2370; 142; J3010